=== PATIENT | female | born 1970 | race Hispanic/Latino ===

== ENCOUNTER 2016-12-31 17:30 | Inpatient (IN) | payer MEDICAID ==
[2016-12-31] MEDS ORDERED: Sodium Chloride 0.9% 500 ML IV STA (17:56)
--- NOTE | 2016-12-31 18:00 | ED PDOC ---
HPI: Chest Pain Time Seen by Provider: 12/31/16 17:48 Chief Complaint (Nursing): Chest Pain Chief Complaint (Provider): Chest pain History Per: Patient History/Exam Limitations: no limitations Onset/Duration Of Symptoms: Days (2 days) Current Symptoms Are (Timing): Still Present Additional Complaint(s): Pt. with left chest pain going to neck and left shoulder. Comes and goes. No dyspnea. Has nausea, vomit x1 nonbloody and diarrhea nonbloody 2x. No weakness. No leg pain, long distance travel, or hormone tx. Has dizziness like room spinning when she gets up or moves started 4 days ago. Better when staying still. No abd pain, new food. Past Medical History Reviewed: Nursing Documentation, Vital Signs Vital Signs: Last Vital Signs Temp 98.7 F 12/31/16 17:33 Pulse 80 12/31/16 18:25 Resp 20 12/31/16 17:33 BP 140/78 12/31/16 17:33 Pulse Ox 97 12/31/16 19:42 - Medical History PMH: HTN - Surgical History Surgical History: Cholecystectomy, - Family History Family History: States: Unknown Family Hx - Living Arrangements Living Arrangements: With Family - Social History Current smoker - smoking cessation education provided: No Alcohol: None Drugs: Denies - Home Medications Home Medications: Ambulatory Orders Medication Instructions Recorded Cyclobenzaprine HCl [Flexeril] 10 mg PO BID PRN #12 tab 12/02/14 Ibuprofen [Motrin Tab] 800 mg PO Q6H PRN #20 tab 12/02/14 Pill For Blood Pressure PO DAILY 12/02/14 Tramadol HCl [Ultram] 50 mg PO Q6 #15 tab 05/25/15 Albuterol 0.5% [Albuterol 0.5% 3 ml IH Q6H PRN #30 neb 11/08/15 Inhal Deanne (2.5 mg/0.5 ml) UD] Ondansetron ODT [Zofran ODT] 4 mg PO Q8H PRN #20 odt 11/08/15 Prednisone 50 mg PO DAILY #4 tablet 11/08/15 oxyCODONE/Acetaminophen [Percocet 1 ea PO Q6H PRN #15 tab 03/30/16 5/325 mg Tab] - Allergies Allergies/Adverse Reactions: Allergies Allergy/AdvReac Type Severity Reaction Status Date / Time No Known Allergies Allergy Verified 11/08/15 17:42 Review of Systems ROS Statement: Except As Marked, All Systems Reviewed And Found Negative Cardiovascular: Positive for: Chest Pain Gastrointestinal: Positive for: Nausea, Vomiting, Diarrhea Musculoskeletal: Positive for: Neck Pain, Shoulder Pain Neurological: Positive for: Dizziness Physical Exam - Reviewed Nursing Documentation Reviewed: Yes Vital Signs Reviewed: Yes - Physical Exam Appears: Positive for: Non-toxic, No Acute Distress Head Exam: Positive for: ATRAUMATIC, NORMAL INSPECTION, NORMOCEPHALIC Skin: Positive for: Normal Color, Warm, DRY Eye Exam: Positive for: EOMI, Normal appearance, PERRL ENT: Positive for: Normal ENT Inspection Neck: Positive for: Normal, Painless ROM, Supple Cardiovascular/Chest: Positive for: Regular Rate, Rhythm. Negative for: Edema Respiratory: Positive for: CNT, Normal Breath Sounds Gastrointestinal/Abdominal: Positive for: Normal Exam, Bowel Sounds, Soft. Negative for: Tenderness Back: Positive for: Normal Inspection. Negative for: L CVA Tenderness, R CVA Tenderness Extremity: Positive for: Normal ROM. Negative for: Tenderness, Pedal Edema Neurologic/Psych: Positive for: Alert, joint terminal attack controller II-XII, Oriented. Negative for: Motor/Sensory Deficits, Facial Droop - Laboratory Results Result Diagrams: 12/31/16 18:30 12/31/16 18:30 Interpretation Of Abn Labs: no acute - ECG ECG: Positive for: Interpreted By Me, Viewed By Nd ECG Rhythm: Positive for: Normal QRS, Normal ST Segment, Sinus Rhythm O2 Sat by Pulse Oximetry: 97 Pulse Ox Interpretation: Normal - Radiology X-Ray: Interpreted by Me, Viewed By Nd X-Ray Interpretation: No Acute Disease - CT Scan/US ct Other Rad Studies (CT/US): Read By Radiologist Other Rad Interpretation: no acute - Progress ED Course And Treament: 1951: Stable. AAOx3. Pain free. Spoke with Dr. Ness. Will need admit for tele chest pain eval. He will give further orders when pt. reaches floor. Medical Decision Making Medical Decision Makin CT FINDINGS: BRAIN: No significant acute abnormality identified. No acute hemorrhage seen within the brain. No acute extra-axial fluid collections visualized. No evidence of significant mass effect within the brain. Normal hamilton-white matter differentiation. VENTRICLES: No evidence of significant hydrocephalus. BONES/JOINTS: No acute fractures or other acute bony abnormality noted. SOFT TISSUES: No acute abnormality of the visualized soft tissues is seen. SINUSES: Visualized paranasal sinuses appear clear. MASTOID AIR CELLS: Mastoid air cells appear clear. IMPRESSION: - No acute findings seen within the brain. - See above for remaining findings. Scribe Attestation: Documented by Jia Walker acting as a scribe for Terence Lisa MD. Scribe Attestation: All medical record entries made by the Scribe were at my direction and personally dictated by me. I have reviewed the chart and agree that the record accurately reflects my personal performance of the history, physical exam, medical decision making, and the department course for this patient. I have also personally directed, reviewed, and agree with the discharge instructions and disposition. Disposition - Clinical Impression Clinical Impression: Chest pain - Patient ED Disposition Is Patient to be Admitted: Yes Counseled Patient/Family Regarding: Studies Performed, Diagnosis - Disposition Disposition Time: 20:07 Condition: FAIR - Pt Status Changed To: Hospital Disposition Of: Observation - POA Present On Arrival: None Core Measure Indicators: Chest Pain
[2016-12-31 18:51] LABS: BASO # 0.1 K/uL (0.0-0.2); BASO % 0.5 % (0.0-2.0); EOS # 0.1 K/uL (0.0-0.7); EOS % 1.4 % (0.0-4.0); HEMATOCRIT 41.4 % (34.0-47.0); LYMPH # 2.3 K/uL (1.0-4.3); LYMPH % 24.1 % (20.0-40.0); MEAN CELL VOLUME 90.4 fl (81.0-99.0); MEAN CORPUSCULAR HEMOGLOBIN 30.9 pg (27.0-31.0); MEAN CORPUSCULAR HGB CONC 34.2 g/dL (33.0-37.0); MEAN PLATELET VOLUME 8.5 fl (7.2-11.7); MONO # 0.6 K/uL (0.0-0.8); MONO % 6.6 % (0.0-10.0); NEUT # 6.3 K/uL (1.8-7.0); NEUT % 67.4 % (50.0-75.0); NRBC % 0.1 % (0.0-0.0); RED CELL DISTRIBUTION WIDTH 12.9 % (11.5-14.5); WHITE BLOOD COUNT 9.4 K/uL (4.8-10.8)
[2016-12-31 18:56] LABS: ALB/GLOB RATIO 1.2 (1.0-2.1); ALKALINE PHOSPHATASE 78 U/L (38-126); ALT/SGPT 53 U/L (9-52); AST/SGOT 22 U/L (14-36); BILIRUBIN,TOTAL 0.5 mg/dl (0.2-1.3); BLOOD UREA NITROGEN 11 mg/dl (7-17); CALCIUM 9.3 mg/dL (8.4-10.2); CARBON DIOXIDE 30 mmol/L (22-30); CHLORIDE 102 mmol/L (98-107); GFR AFRICAN-AMERICAN > 60; GLUCOSE,RANDOM 96 mg/dL (65-105); LIPASE 85 U/L (23-300); POTASSIUM 3.6 MMOL/L (3.6-5.0); SODIUM 142 mmol/l (132-148); TOTAL PROTEIN 7.7 G/DL (6.3-8.2)
[2016-12-31 19:36] LABS: PARTIAL THROMBOPLASTIN TIME 32.8 Seconds (25.6-37.1)
--- NOTE | 2016-12-31 19:36 | CT ---
EXAM: CT Head Without Intravenous Contrast CLINICAL HISTORY: 46 years old, female; Signs and symptoms; Dizziness TECHNIQUE: Axial computed tomography images of the head/brain without intravenous contrast. This CT exam was performed using one or more of the following dose reduction techniques: automated exposure control, adjustment of the mA and/or kV according to patient size, and/or use of iterative reconstruction technique. Coronal and sagittal reformatted images were created and reviewed. EXAM DATE/TIME: 12/31/2016 5:55 PM COMPARISON: No relevant prior studies available. FINDINGS: BRAIN: No significant acute abnormality identified. No acute hemorrhage seen within the brain. No acute extra-axial fluid collections visualized. No evidence of significant mass effect within the brain. Normal hamilton-white matter differentiation. VENTRICLES: No evidence of significant hydrocephalus. BONES/JOINTS: No acute fractures or other acute bony abnormality noted. SOFT TISSUES: No acute abnormality of the visualized soft tissues is seen. SINUSES: Visualized paranasal sinuses appear clear. MASTOID AIR CELLS: Mastoid air cells appear clear. IMPRESSION: - No acute findings seen within the brain. - See above for remaining findings.
[2017-01-01 03:24] LABS: HEMATOCRIT 39.9 % (34.0-47.0); MEAN CORPUSCULAR HEMOGLOBIN 30.5 pg (27.0-31.0); MEAN CORPUSCULAR HGB CONC 33.6 g/dL (33.0-37.0); RED CELL DISTRIBUTION WIDTH 13.1 % (11.5-14.5); WHITE BLOOD COUNT 8.4 K/uL (4.8-10.8)
[2017-01-01 03:25] LABS: CHLORIDE 103 mmol/L (98-107); POTASSIUM 3.6 MMOL/L (3.6-5.0); SODIUM 142 mmol/l (132-148)
[2017-01-01 03:27] LABS: ALB/GLOB RATIO 1.1 (1.0-2.1); AST/SGOT 22 U/L (14-36); BILIRUBIN,TOTAL 0.3 mg/dl (0.2-1.3); CARBON DIOXIDE 33 mmol/L (22-30); CHOLESTEROL 166 mg/dL (0-199); GFR AFRICAN-AMERICAN > 60; TOTAL PROTEIN 6.8 G/DL (6.3-8.2)
[2017-01-01 03:28] LABS: ALKALINE PHOSPHATASE 66 U/L (38-126); ALT/SGPT 47 U/L (9-52); BLOOD UREA NITROGEN 11 mg/dl (7-17); CALCIUM 8.8 mg/dL (8.4-10.2); GLUCOSE,RANDOM 101 mg/dL (65-105)
[2017-01-01 05:37] LABS: T4 7.74 ug/dl (5.5-11.0)
[2017-01-01 05:51] LABS: THYROID STIMULATING HORMONE 0.98 mIU/ML (0.46-4.68)
[2017-01-01] MEDS ORDERED: Patient's Own Med (Losartan/Hydrochlorothiazide [Losartan-Hctz 100-25 Mg Tab] 1 TAB) PO SCH (09:00)
[2017-01-01] MEDS: Enoxaparin 40 mg Syringe SC SCH (09:24)
--- NOTE | 2017-01-01 14:20 | RAD ---
HISTORY: chest pain COMPARISON: Chest x-ray performed 11/08/15 TECHNIQUE: Chest PA and lateral FINDINGS: Examination limited by habitus. LUNGS: No focal consolidation. Please note that chest x-ray has limited sensitivity for the detection of pulmonary masses. PLEURA: No significant pleural effusion identified. No definite pneumothorax . CARDIOVASCULAR: Heart size appears within normal limits. OSSEOUS STRUCTURES: Mild degenerative changes of the spine. VISUALIZED UPPER ABDOMEN: Unremarkable. OTHER FINDINGS: None. IMPRESSION: No focal consolidation, significant pleural effusion, or definite pneumothorax identified.
--- NOTE | 2017-01-01 17:49 | CON ---
DATE: 01/01/2017 REASON FOR CONSULTATION: Chest pain. HISTORY OF PRESENT ILLNESS: The patient is a 46-year-old obese female who presents because of left-sided chest tightness radiating to the left shoulder associated with palpitation and dizzines s. The patient also experienced nausea and vomiting as well as diarrhea. The patient is unaware of any prior cardiac history. The patient is being treated for hypertension by Dr. Gomes as the primar y physician. SOCIAL HISTORY: The patient is a smoker. MEDICATIONS: Meclizine 25 mg q. 6 hours, Cozaar 100 mg once a day, hydrochlorothiazide 25 mg once a day, Lovenox 40 mg once a day, vitamin B12 1 mg IM daily, Zofran 4 mg intravenously q. 8 hours. REVIEW OF SYSTEMS: No fever or chills. No productive cough. PHYSICAL EXAMINATION: GENERAL: The patient is a middle-aged female who does not appear to be in any distress. VITAL SIGNS: Blood pressure 104/62, heart rate 68, temperature 98.6, respirations 20. HEENT: Normocephalic. NECK: No JVD. CHEST: Clear. HEART: S1, S2 regular. ABDOMEN: Soft. EXTREMITIES: No edema. LABORATORY DATA: CBC is within normal limits. PT/PTT within normal limits. SMA-7 is within normal limits except for carbon dioxide of 33. Two sets of troponins are negative. TSH level is within nor mal limits. Total T3 is below normal at 1.16. IMAGING: Head CT scan without contrast: No acute findings. EKG revealed normal sinus rhythm. ASSESSMENT: 1. Chest pain, myocardial infarction is ruled out. 2. Hypertension. RECOMMENDATIONS: Continue current Cozaar 100 mg once a day, hydrochlorothiazide 25 mg once a day and start aspirin 81 mg once a day. I will review the echocardiographic study performed today. Obtain serum D-dimer as well as urine for drug screen. Gage Huynh MD cc: [id number] TT: 01/01/2017 17:48:58 Confirmation # [id number] Dictation # [id number] mn
--- NOTE | 2017-01-01 18:00 | HP ---
CHIEF COMPLAINT: Chest pain. HISTORY OF PRESENT ILLNESS: This is a 46-year-old female, known case of hypertension, who was having left-sided chest, radiating to neck and left shoulder. So the patient was brought to Emergency Room and was admitted for further management. REVIEW OF SYSTEMS: Positive for chest pain. Review of systems otherwise was negative for headache, dizziness, syncope, loss of consciousness, chest pain, shortness of breath, nausea, vomiting, diarrhe a, constipation, any new joint or extremity pain. The patient did have nausea and 1 episode of vomit ing. Also had episode of diarrhea, but currently patient has none of those. Review of systems of al l other organ systems is unremarkable. PAST MEDICAL HISTORY: Significant for hypertension. PAST SURGICAL HISTORY: Remarkable for section and cholecystectomy. PERSONAL HISTORY: The patient is currently a nonsmoker, nondrinker, no substance abuse. MEDICATIONS: The patient is on multiple medications, which include Motrin, Flexeril, Ultram, albuter ol, Zofran, Percocet, prednisone. ALLERGIES: The patient is not allergic to any medications. FAMILY HISTORY: Noncontributory. PHYSICAL EXAMINATION: GENERAL: Well-built, well-nourished 46-year-old morbidly obese patient in no acute distress. VITAL SIGNS: Temperature 98.6, pulse 77, respirations 16, blood pressure 124/80. HEENT: Pupils reacting to light. No JVD, no thyromegaly, no lymphadenopathy, no nystagmus. Normoce phalic, atraumatic skull. HEART: S1, S2 normal, regular. No significant murmur, gallop, or rub is heard. LUNGS: Show good bilateral air entry. No rales or rhonchi. ABDOMEN: Soft, nontender, no organomegaly, no fluid. Bowel sounds are plus. EXTREMITIES: No edema, no calf swelling, no tenderness, no acute ischemia. CENTRAL NERVOUS SYSTEM: Essentially unchanged. DIAGNOSTIC DATA: Available diagnostic data reviewed. WBC 9.4, hemoglobin 14.2, hematocrit 41.4, tj telets 286. Sodium 142, potassium 3.6, chloride 102, bicarbonate 30, BUN 11, creatinine 0.7. SMA-12 was unremarkable. EKG does not reveal significant arrhythmia. Chest x-ray was clear. CAT scan of head was also clear. ADMITTING IMPRESSION: Chest pain. PLAN: As ordered. Case and plan discussed with patient. Partha Ness MD cc: [id number] TT: 01/01/2017 17:59:33 dn
--- NOTE | 2017-01-01 21:55 | CARD ---
APPROVED REPORT EXAM: Two-dimensional and M-mode echocardiogram with Doppler and color Doppler. Other Information Quality : GoodRhythm : NSR INDICATION Chest Pain 2D DIMENSIONS IVSd1.06 (0.7-1.1cm)LVDd4.64 (3.9-5.9cm) LVOT Diameter2.41 (1.8-2.4cm)PWd0.84 (0.7-1.1cm) IVSs1.77 (0.8-1.2cm)LVDs2.54 (2.5-4.0cm) FS (%) 45.2 %PWs1.55 (0.8-1.2cm) LVEF (%)65.0 (>50%) M-Mode DIMENSIONS Left Atrium (MM)3.68 (2.5-4.0cm)IVSd1.26 (0.7-1.1cm) Aortic Root3.09 (2.2-3.7cm)LVDd5.06 (4.0-5.6cm) Aortic Cusp Exc.2.09 (1.5-2.0cm)PWd0.97 (0.7-1.1cm) IVSs1.74 cmFS (%) 56 % LVDs2.24 (2.0-3.8cm)PWs1.56 cm Mitral Valve MV E Pcvilbef29.7cm/sMV DECEL [id number] A Gsfdrqbq76.1cm/s MV NTX50qdG/A ratio1.0MVA (PHT)3.39cm2 TDI E/Lateral E'0.0E/Medial E'0.0 Pulmonary Valve PV Peak Tcvixgyu017.6cm/s LEFT VENTRICLE The left ventricle is normal size. There is mild concentric left ventricular hypertrophy. The left ventricular function is normal. The left ventricular ejection fraction is within the normal range. There is normal LV segmental wall motion. Transmitral Doppler flow pattern is Grade I-abnormal relaxation pattern. RIGHT VENTRICLE The right ventricle is normal size. There is normal right ventricular wall thickness. The right ventricular systolic function is normal. ATRIA The left atrium size is normal. The right atrium size is normal. AORTIC VALVE The aortic valve is mildly thickened. No aortic regurgitation is present. There is no aortic valvular stenosis. MITRAL VALVE The mitral valve is mildly thickened. There is no mitral valve stenosis. There is no mitral valve regurgitation noted. TRICUSPID VALVE The tricuspid valve is normal in structure and function. There is no tricuspid valve regurgitation noted. PULMONIC VALVE The pulmonary valve is normal in structure and function. There is no pulmonic valvular regurgitation. GREAT VESSELS The aortic root is normal in size. The IVC is normal in size and collapses >50% with inspiration. PERICARDIAL EFFUSION There is a small loculated anterior pericardial effusion. <Conclusion> The left ventricle is normal size. There is mild concentric left ventricular hypertrophy. The left ventricular function is normal. The left ventricular ejection fraction is within the normal range. There is normal LV segmental wall motion. Transmitral Doppler flow pattern is Grade I-abnormal relaxation pattern.
--- NOTE | 2017-01-02 00:14 | CARD ---
APPROVED REPORT EKG Measurement Heart [id number] HI [id number] <Conclusion> Normal sinus rhythm Normal ECG
--- NOTE | 2017-01-02 06:41 | CP.PCM.DIS ---
Provider - Provider Date of Admission: 01/01/17 21:22 Attending physician: Partha Ness MD Time Spent in preparation of Discharge (in minutes): 45 Diagnosis - Discharge Diagnosis (1) Morbidly obese Status: Acute Comment: Patient counseled on diet and exercise. (2) Chest pain Status: Acute Comment: Most consistent with costochondritis. Hospital Course - Lab Results Lab Results: Most Recent Lab Values WBC 8.4 K/uL (4.8-10.8) 01/01/17 02:30 RBC 4.38 Mil/uL (3.80-5.20) 01/01/17 02:30 Hgb 13.4 g/dL (12.0-16.0) 01/01/17 02:30 Hct 39.9 % (34.0-47.0) 01/01/17 02:30 MCV 91.0 fl (81.0-99.0) 01/01/17 02:30 MCH 30.5 pg (27.0-31.0) 01/01/17 02:30 MCHC 33.6 g/dL (33.0-37.0) 01/01/17 02:30 RDW 13.1 % (11.5-14.5) 01/01/17 02:30 Plt Count 272 K/uL (130-400) 01/01/17 02:30 MPV 8.5 fl (7.2-11.7) 12/31/16 18:30 Neut % (Auto) 67.4 % (50.0-75.0) 12/31/16 18:30 Lymph % (Auto) 24.1 % (20.0-40.0) 12/31/16 18:30 Cache % (Auto) 6.6 % (0.0-10.0) 12/31/16 18:30 Eos % (Auto) 1.4 % (0.0-4.0) 12/31/16 18:30 Baso % (Auto) 0.5 % (0.0-2.0) 12/31/16 18:30 Neut # 6.3 K/uL (1.8-7.0) 12/31/16 18:30 Lymph # 2.3 K/uL (1.0-4.3) 12/31/16 18:30 Cache # 0.6 K/uL (0.0-0.8) 12/31/16 18:30 Eos # 0.1 K/uL (0.0-0.7) 12/31/16 18:30 Baso # 0.1 K/uL (0.0-0.2) 12/31/16 18:30 PT 11.3 Seconds (9.8-13.1) 12/31/16 18:30 INR 1.0 (0.9-1.2) 12/31/16 18:30 APTT 32.8 Seconds (25.6-37.1) 12/31/16 18:30 D-Dimer, Quantitative 294 ng/mlDDU (0-230) H 01/01/17 18:57 Sodium 142 mmol/l (132-148) 01/01/17 02:00 Potassium 3.6 MMOL/L (3.6-5.0) 01/01/17 02:00 Chloride 103 mmol/L (98-107) 01/01/17 02:00 Carbon Dioxide 33 mmol/L (22-30) H 01/01/17 02:00 Anion Gap 10 (10-20) 01/01/17 02:00 BUN 11 mg/dl (7-17) 01/01/17 02:00 Creatinine 0.7 mg/dL (0.7-1.2) 01/01/17 02:00 Est GFR ( Amer) > 60 01/01/17 02:00 Est GFR (Non-Af Amer) > 60 01/01/17 02:00 Random Glucose 101 mg/dL (65-105) 01/01/17 02:00 Hemoglobin A1c 5.1 % (4.2-6.5) 01/01/17 02:30 Calcium 8.8 mg/dL (8.4-10.2) 01/01/17 02:00 Total Bilirubin 0.3 mg/dl (0.2-1.3) 01/01/17 02:00 AST 22 U/L (14-36) 01/01/17 02:00 ALT 47 U/L (9-52) 01/01/17 02:00 Alkaline Phosphatase 66 U/L (38-126) 01/01/17 02:00 Troponin I < 0.0120 ng/mL (0.00-0.120) 01/01/17 02:30 Total Protein 6.8 G/DL (6.3-8.2) 01/01/17 02:00 Albumin 3.6 g/dL (3.5-5.0) 01/01/17 02:00 Globulin 3.2 gm/dL (2.2-3.9) 01/01/17 02:00 Albumin/Globulin Ratio 1.1 (1.0-2.1) 01/01/17 02:00 Triglycerides 115 mg/DL (0-149) 01/01/17 02:00 Cholesterol 166 mg/dL (0-199) 01/01/17 02:00 LDL Cholesterol Direct 111 mg/dL (0-129) 01/01/17 02:00 HDL Cholesterol 33 MG/DL (30-70) 01/01/17 02:00 Lipase 85 U/L (23-300) 12/31/16 18:30 Vitamin B12 247 pg/mL (239-931) 01/01/17 02:00 Thyroxine (T4) 7.74 ug/dl (5.5-11.0) 01/01/17 02:00 Total T3 1.16 nmol/L (1.49-2.60) L 01/01/17 02:00 TSH 3rd Generation 0.98 mIU/ML (0.46-4.68) 01/01/17 02:00 - Hospital Course Hospital Course: Patient seen and examined at the bedside with attending. 46F admitted for rule out ACS. Evaluated by Cardiology (Dr Huynh) and Troponins/EKG/Echo/Stress Test/CTA chest negative for cardiac or pulmonary etiology. Most consistent with musculoskeletal. Patient is stable for discharge to home with follow up with Dr Gomes. Discharge Exam - Head Exam Head Exam: ATRAUMATIC, NORMAL INSPECTION, NORMOCEPHALIC - Eye Exam Eye Exam: EOMI, PERRL - ENT Exam ENT Exam: Mucous Membranes Moist, Normal Exam - Neck Exam Neck exam: Full Rom, Normal Inspection - Respiratory Exam Respiratory Exam: Clear to PA & Lateral, NORMAL BREATHING PATTERN. absent: Rales, Rhonchi, Wheezes - Cardiovascular Exam Cardiovascular Exam: REGULAR RHYTHM. absent: JVD - GI/Abdominal Exam GI & Abdominal Exam: Normal Bowel Sounds, Soft. absent: Tenderness - Extremities Exam Extremities exam: full ROM, normal capillary refill, pedal pulses present - Neurological Exam Neurological exam: Alert, Oriented x3 - Psychiatric Exam Psychiatric exam: Normal Affect, Normal Mood - Skin Skin Exam: Normal Color, Warm Discharge Plan - Follow Up Plan Condition: FAIR Disposition: HOME/ ROUTINE Patient education suggested?: Yes Instructions: Costochondritis (DC), Heart Healthy Diet (DC) Referrals: Nigel Rodriguez MD [Family Provider] - 1 Week
--- NOTE | 2017-01-02 09:54 | PQF BMI ---
This form is a permanent part of the medical record 01/02/17 Dr. Ness, Would you please document the BMI in your progress notes. Documentation in the H&P that the patient is morbidly obese. EMR lists the patient as 5', weighing 235 pounds with a BMI of 45.9 Clarification of your documentation is requested to better reflect the severity of illness and intensity of treatment of your patient. Indicators present [x] Documented BMI>40 [] Nutritional/Channel Process Supervisor consults [] 100 pounds or more over ideal body weight [] Documented BMI / HT & WT [] Other : [] Location in the medical record that reflects the above clinical findings: [] Other Treatment Provided: [] PHYSICIAN'S RESPONSE Based on your medical judgment of the clinical indicators outlined above, please define the following: [] Morbid obesity [] Obesity [] Other [] [] If unable to determine, please check the box, sign and date. Present On Admission (POA) Indicator: [] Present at the time of admission [] Not present at the time of admission [] Clinically Undetermined In responding to this query, please exercise your independent professional judgment. The fact that a question is asked does not imply that any particular answer is desired or expected. Thank you for your clarification on this documentation. If you have any questions please call:extension [phone] Medical Records Dept * Thank you, Geno Beltran RN CDMP [facility]
--- NOTE | 2017-01-02 09:59 | PQF CHESTP ---
This form is a permanent part of the medical record 01/02/17 , Please clarify the possible etiology of the chest pain if known. Admitted with chest pain radiating to the neck and left shoulder, EKG Sinus. Troponin negative. Echo: EF 65%, abnormal relaxation pattern. There is clinical documentation of CHEST PAIN with evaluation, treatment, and / or monitoring present in the medical record. Please clarify the possible / probable cause of CHEST PAIN. Source Documentation: Chart Location: [x] Progress Notes [x] Consults [] Radiology Results Date: [] Date: [] Date:[] ED Records: [x] H&P: [x] Other: [] PHYSICIAN RESPONSE CAUSE OF CHEST PAIN: Please Check [] Documentation: [] Musculoskeletal Chest Pain [] Costochondritis [] Gastroesophageal Reflux Disease (GERD) [] Acute Gastritis [] Angina [] CAD [] Other [] [] Unknown [] In responding to this query, please exercise your independent professional judgment. The fact that a question is asked does not imply that any particular answer is desired or expected. Thank you for your clarification on this documentation. If you have any questions please call:extension [phone] Medical Records Dept * Thank you, Geno Beltran RN CD[facility]
[2017-01-02] MEDS: Enoxaparin 40 mg Syringe SC SCH (11:09)
--- NOTE | 2017-01-02 11:53 | CARD ---
APPROVED REPORT Protocol: ANNA Test Type: Treadmill Stress Test Attending Physician: Dr. Lei Referring Physician: Dr. Huynh Technologist: Susana Reese Test Indications: chest pain Medications: Cyanocobalamin, Lovenox 40mg, Hydrochlorothiazide 15mg, Losartan Potassium 100mg, Meclizine HCl 25mg, Ondansetron HCL 4mg Medical History: Hypertension, Asthma, Smoker, Seizures, Arthritis, , Gallbladder surgery. Target HR: 173 bpm Resting ECG: normal Resting Heart Rate: 93 bpm Resting Blood Pressure: 146/102mmHg submaximum (85%): 147 bpm TEST SUMMARY [id number]:02..[id number]/102.0. [id number]:[id number]/102.0. PRETESTHYPERV.00:030.00.01.774761/102.0. PRETESTWARM-UP00:461.00.01.255090/102.0. EXERCISESTAGE 103:001.710.04.5961190/80.1. EXERCISESTAGE 203:002.512.07.1861805/90.0. EXERCISESTAGE 300:413.514.08.6374636/90.0. [id number]:200.00.01.350383/80.0. POST EXERCISE Reason for Termination: Target heart rate achieved Target HR: NoMax HR: 150 bpm87% of Maximum Predicted HR: 173 bpm Exercise duration: 3 Stage06:40 min:secExercise capacity: 8.1METs Max Blood Pressure: 190/70mmHg Blood Pressure response to exercise: normal resting BP - appropriate response Heart Rate response to exercise: appropriate Chest Pain: Yesnon-limitingAngina index: 0 Arrhythmia: Nonone ST Change: NononeDeviation: 0 mm INTERPRETATION Stress EKG Conclusion: 46 y/o w/f being evaluated for chest pain The resting eKG: normal Resting HR:86 BPM; BP: 146/102 She exercised for 6:40 minutes with Anna Protocol attaining a HR of 150 BPM which is 87% of MPHR. Her BP josiane to190/70 with aworkload of 8.1 METs During the test there was no ST changes or chest pain. Impression: Normal Stress Test
[2017-01-02 12:08] VITALS: O2SAT 96
--- NOTE | 2017-01-02 15:02 | PN ---
DATE: 01/02/2017 The patient denies any chest pain. PHYSICAL EXAMINATION: VITAL SIGNS: Blood pressure 134/86, heart rate 75, temperature 97.8, respirations 20. HEENT: Normocephalic. NECK: No JVD. CHEST: Clear. HEART: S1, S2 regular. EXTREMITIES: No edema. Urine drug screen is negative. Two sets of troponins are negative. A stress test was normal. D-dim er is elevated at 294. ASSESSMENT: 1. Chest pain, rule out pulmonary infarction. 2. Hypertension. RECOMMENDATIONS: Continue current Cozaar, hydrochlorothiazide, subcutaneous Lovenox. I did order fo r CT angio of the chest. Gage Huynh MD cc: [id number] TT: 01/02/2017 15:01:51 Confirmation # [id number] Dictation # [id number]
[2017-01-02 16:03] VITALS: BP 160/104; PULSE 79
[2017-01-02 16:40] VITALS: RESP 18; TEMP 98.3
--- NOTE | 2017-01-02 17:53 | CT ---
CTA chest PE protocol Indication: Rule out PE Technique: Contiguous axial images were obtained through the chest with intravenous contrast enhancement. Sagittal and coronal reconstructions were generated and reviewed. This CT exam was performed using 1 or more of the falling dose reduction techniques: Automated exposure control, adjustment of the MAA and/or kV according to patient size, and/or use of iterative reconstruction technique. IV Contrast: 90 mL Omnipaque 300 Radiation dose (DLP): 385.42 MGy-cm. Comparison: Chest x-ray performed 12/31/16 Findings: Examination limited by habitus. The mediastinal and hilar vascular structures appear within normal limits. The heart appears within normal limits of size. No large central or segmental pulmonary embolus evident. No focal consolidation. No pleural effusion. No pneumothorax. 4 mm left apical nodule (series 5, image 10). Limited visualized portions of the upper abdomen appear demonstrates cholecystectomy clips. Mild degenerative changes of the spine. Impression: No large central or segmental pulmonary embolus identified. 4 mm left apical pulmonary nodule. In the absence of risk factors for lung cancer, no specific imaging follow-up is required. If the patient is a smoker or has other risk factors, follow-up CT at 12 months is recommended to document stability.
== END 2017-01-02 19:15 | disposition home or self-care (01) | DRG 102 ==
LOC: H.ER 17:30 → H.ERHOLD 20:05 → H.TEL 21:03 → INTOOBSV 01-01 21:22 → OBSVTOIN 01-01 21:22
PROVIDERS: ADMIT Internal Medicine; ATTEND Internal Medicine
DX: M94.0 Chondrocostal junction syndrome [Tietze] (principal); Z68.42 Body mass index [BMI] 45.0-49.9, adult; I10 Essential (primary) hypertension; E66.01 Morbid (severe) obesity due to excess calories; F17.200 Nicotine dependence, unspecified, uncomplicated; Z71.3 Dietary counseling and surveillance

== ENCOUNTER 2017-09-24 18:11 | Emergency (ER) | payer MEDICAID ==
[2017-09-24 18:21] VITALS: TEMP 98.1; O2SAT 100
--- NOTE | 2017-09-24 19:35 | ED PDOC ---
HPI: General Adult Time Seen by Provider: 09/24/17 18:27 Chief Complaint (Nursing): Rib Injury Chief Complaint (Provider): Rib Pain History Per: Patient History/Exam Limitations: no limitations Onset/Duration Of Symptoms: Days (x 1 week) Have you had recent travel within the past 21 days to any of the following countries: [place], [place], [place] or [place]?: No Current Symptoms Are (Timing): Still Present Severity: Moderate Pain Scale Rating Of: 6 Recent Trauma: None Additional History Per: Family ( at bedside) Additional Complaint(s): Whitney is a 47 y/o female who presents to the ED complaining of right sided lower rib pain for the past week. Patient states she went to her PMD last Sunday who thought she might have a fracture because she has been going to the gym a lot. She states the pain is worse when she takes a deep breath, sits down to pee, or moves. Patient denies any trauma to the area or history of similar symptoms. Patient denies dysuria, hematuria, frequency/urgency, nausea, vomiting , fever, abdominal pain, chest pain, calf pain, SOB, leg swelling or other medical complaints. PMD: Michael Past Medical History Reviewed: Historical Data, Nursing Documentation, Vital Signs Vital Signs: Last Vital Signs Temp 98.1 F 09/24/17 21:30 Pulse 74 09/24/17 21:30 Resp 18 09/24/17 21:30 BP 140/82 09/24/17 21:30 Pulse Ox 100 09/24/17 21:30 - Medical History PMH: Arthritis (right Knee), Asthma, HTN Denies: HIV, Chronic Kidney Disease - Surgical History Surgical History: Cholecystectomy, - Family History Family History: States: No Known Family Hx - Social History Current smoker - smoking cessation education provided: Yes (2-3 cigs/day) Alcohol: None Drugs: Denies - Home Medications Home Medications: Ambulatory Orders Medication Instructions Recorded Losartan/Hydrochlorothiazide 1 tab PO DAILY 12/31/16 [Losartan-Hctz 100-25 mg Tab] Cyclobenzaprine [Cyclobenzaprine 10 mg PO TID PRN #12 tab 09/24/17 HCl] Ibuprofen [Motrin Tab] 600 mg PO Q6 PRN #20 tab 09/24/17 - Allergies Allergies/Adverse Reactions: Allergies Allergy/AdvReac Type Severity Reaction Status Date / Time No Known Allergies Allergy Verified 12/31/16 20:44 Review of Systems ROS Statement: Except As Marked, All Systems Reviewed And Found Negative Constitutional: Negative for: Fever, Chills Cardiovascular: Negative for: Chest Pain Respiratory: Negative for: Cough, Shortness of Breath Gastrointestinal: Negative for: Nausea, Vomiting, Abdominal Pain Genitourinary Female: Negative for: Dysuria, Frequency Musculoskeletal: Positive for: Other (rib pain) Skin: Negative for: Rash Neurological: Negative for: Weakness Physical Exam - Reviewed Nursing Documentation Reviewed: Yes Vital Signs Reviewed: Yes - Physical Exam Appears: Positive for: Well, Non-toxic, No Acute Distress Head Exam: Positive for: ATRAUMATIC, NORMOCEPHALIC Skin: Positive for: Normal Color, Warm, Dry Eye Exam: Positive for: EOMI, PERRL Neck: Positive for: Painless ROM, Supple Cardiovascular/Chest: Positive for: Regular Rate, Rhythm. Negative for: Chest Non Tender (Tenderness to right inferior anterior and lateral ribs with no overlying skin changes), Murmur, Bradycardia, Tachycardia, Other (evidence of subcutaneous emphysema) Respiratory: Positive for: Normal Breath Sounds. Negative for: Decreased Breath Sounds, Accessory Muscle Use, Stridor, Wheezing, Respiratory Distress Gastrointestinal/Abdominal: Positive for: Soft. Negative for: Tenderness, Mass , Distended, Guarding, Rebound Back: Negative for: L CVA Tenderness, R CVA Tenderness Extremity: Positive for: Normal ROM. Negative for: Tenderness, Pedal Edema, Calf Tenderness, Deformity, Swelling Neurologic/Psych: Positive for: Alert, Oriented (x3), Gait (steady in ED) - Laboratory Results Urine POC: Negative Urine dip results: Negative for: Leukocyte Esterase, Blood, Nitrate, Ketones, Glucose, Bilirubin, Protein - ECG ECG Rhythm: Positive for: Normal ST Segment, Sinus Rhythm (Normal [place]) O2 Sat by Pulse Oximetry: 100 (RA) Pulse Ox Interpretation: Normal - Radiology X-Ray: Interpreted by Me, Viewed By Me X-Ray Interpretation: No Acute Disease Medical Decision Making Medical Decision Making: Time: 18:37 Initial Impression: Acute rib pain, likely musculoskeletal in nature Initial Plan: --EKG --XR Ribs and Chest --Urine Dip --Urine Time: 19:32 --EKG reviewed --Flexeril --Tramadol --Toradol (Patient states she will not be driving home) Time: 20:10 --Urine Dip and Urine are both negative --CXR (-) acute fracture (-) pneumothorax --Educated on smoking cessation. Time: 20:30 On re-evaluation, patient reports improvement of symptoms and denies any SOB or chest pain at this time. On exam, patient remains AAOx3, in no acute distress. On exam, neck is supple, lungs CTA, cardiac RRR, abdomen is soft and non-tender , neuro exam shows no focal findings. VSS. Diagnostic results d/w the patient in great detail. Dx of acute rib pain, likely muscle strain d/w the patient. Based on history, exam and diagnostic results plan will be for discharge and outpatient follow up. Advised to follow up with primary care physician in 1-2 days without fail. Advised to take medication as prescribed. Return to the emergency room at any time for any new or worsening symptoms. Patient states she fully agrees with and understands discharge instructions. States that she agrees with the plan and disposition. Verbalized and repeated discharge instructions and plan. I have given the patient opportunity to ask any additional questions. Scribe Attestation: Documented by Ben Dan, acting as a scribe for Aishwarya Pierre PA-C Provider Scribe Attestation: All medical record entries made by the Scribe were at my direction and personally dictated by me. I have reviewed the chart and agree that the record accurately reflects my personal performance of the history, physical exam, medical decision making, and the department course for this patient. I have also personally directed, reviewed, and agree with the discharge instructions and disposition. Disposition - Clinical Impression Clinical Impression: Rib pain on right side, Muscle strain - Patient ED Disposition Is Patient to be Admitted: No Counseled Patient/Family Regarding: Studies Performed, Diagnosis, Need For Followup, Rx Given - Disposition Referrals: [facility] [Outside] Disposition: Routine/Home Disposition Time: 20:49 Condition: STABLE Additional Instructions: Please contact your doctor in 2 days for re-evaluation and follow up / or call one of the physicians/clinics you have been referred to that are listed on the Patient Visit Information form that is included in your discharge packet. Bring any paperwork you were given at discharge with you along with any medications you are taking to your follow up visit. Our treatment cannot replace ongoing medical care by a primary care provider (PCP) outside of the emergency department. Prescriptions: Cyclobenzaprine [Cyclobenzaprine HCl] 10 mg PO TID PRN #12 tab PRN Reason: Muscle Spasm Ibuprofen [Motrin Tab] 600 mg PO Q6 PRN #20 tab PRN Reason: Pain, Moderate (4-7) Instructions: Muscle Strain, Chest Pain That Is Not Caused by the Heart (DC) Forms: [facility] (Maltese) Print Language: SWAZI
[2017-09-24 23:40] VITALS: BP 140/82; PULSE 74; RESP 18
--- NOTE | 2017-09-25 08:56 | RAD ---
PROCEDURE: Radiographs of the Chest and Right Ribs. HISTORY: RIB PAIN COMPARISON: Chest radiograph dated 12/31/2016. TECHNIQUE: Frontal radiograph of the chest and multiple oblique radiographs of the right ribs were obtained. FINDINGS: RIGHT RIBS: No fracture or focal lesion visualized. LUNGS: Clear. PLEURA: No pneumothorax or pleural fluid. CARDIOVASCULAR: Normal sized heart. No pulmonary vascular congestion. OTHER FINDINGS: Right upper quadrant surgical clips. IMPRESSION: Unremarkable radiographs of the chest and right ribs. No right rib fracture.
--- NOTE | 2017-09-25 12:42 | CARD ---
APPROVED REPORT EKG Measurement Heart [id number] <Conclusion> Normal sinus rhythm Possible Inferior infarct, age undetermined Abnormal ECG
== END 2017-09-24 21:37 | disposition home or self-care (01) ==
LOC: H.ER 18:11
DX: R07.82 Intercostal pain (principal); I10 Essential (primary) hypertension; F17.200 Nicotine dependence, unspecified, uncomplicated; J45.909 Unspecified asthma, uncomplicated
CPT/HCPCS: 71101; 81025; 93005; 96372; 99282; J1885

== ENCOUNTER 2017-10-03 11:06 | Emergency (ER) | payer MEDICAID ==
[2017-10-03 11:15] VITALS: BP 132/89; PULSE 89; TEMP 97; O2SAT 96
[2017-10-03 11:16] VITALS: BMI 46.8
[2017-10-03 11:32] VITALS: RESP 18
[2017-10-03 11:59] LABS: BASO # 0.1 K/uL (0.0-0.2); BASO % 1.1 % (0.0-2.0); EOS # 0.2 K/uL (0.0-0.7); EOS % 1.9 % (0.0-4.0); HEMOGLOBIN 14.5 g/dL (12.0-16.0); LYMPH # 2.5 K/uL (1.0-4.3); LYMPH % 29.1 % (20.0-40.0); MEAN CELL VOLUME 90.5 fl (81.0-99.0); MEAN CORPUSCULAR HEMOGLOBIN 30.7 pg (27.0-31.0); MEAN CORPUSCULAR HGB CONC 33.9 g/dL (33.0-37.0); MEAN PLATELET VOLUME 7.9 fl (7.2-11.7); MONO # 0.5 K/uL (0.0-0.8); MONO % 6.2 % (0.0-10.0); NEUT # 5.3 K/uL (1.8-7.0); NEUT % 61.7 % (50.0-75.0); NRBC % 0.1 % (0.0-0.0); RBC 4.72 Mil/uL (3.80-5.20); WHITE BLOOD COUNT 8.5 K/uL (4.8-10.8)
[2017-10-03 12:06] LABS: ALB/GLOB RATIO 1.2 (1.0-2.1); ALBUMIN 4.3 g/dL (3.5-5.0); ALT/SGPT 39 U/L (9-52); AST/SGOT 28 U/L (14-36); BLOOD UREA NITROGEN 16 mg/dl (7-17); CALCIUM 9.3 mg/dL (8.4-10.2); GFR AFRICAN-AMERICAN > 60; GFR NON-AFRICAN AMERICAN > 60
--- NOTE | 2017-10-03 12:07 | ED PDOC ---
HPI: Back Time Seen by Provider: 10/03/17 11:23 Chief Complaint (Nursing): Back Pain Chief Complaint (Provider): Right Flank Pain History Per: Patient History/Exam Limitations: no limitations Onset/Duration Of Symptoms: Days (x 3 weeks) Current Symptoms Are (Timing): Still Present Additional Complaint(s): Whitney is a 47 y/o female who presents to the ED complaining of right flank pain for the past 3 weeks. Patient states she has been coughing a lot so her PMD thought it was related to coughing and possibly breaking a rib. She was seen her a week ago where she had an XR done which showed no evidence of fracture. She was sent home on flu medications and muscle relaxants which she says made her feel better until this week on Sunday when it got worse again. Coughing and movement make it worse, but lying down does not. She denies fever, chills, hematuria, dysuria, nausea, or vomiting. PMD: Nigel Rodriguez Past Medical History Reviewed: Historical Data, Nursing Documentation, Vital Signs Vital Signs: Last Vital Signs Temp 97 F L 10/03/17 11:15 Pulse 89 10/03/17 11:15 Resp 18 10/03/17 11:20 BP 132/89 10/03/17 11:15 Pulse Ox 96 10/03/17 11:15 - Medical History PMH: Arthritis (right Knee), Asthma, HTN Denies: HIV, Chronic Kidney Disease - Surgical History Surgical History: Cholecystectomy, Other surgeries: partial hysterectomy - Family History Family History: States: Unknown Family Hx - Social History Current smoker - smoking cessation education provided: No Alcohol: None - Home Medications Home Medications: Ambulatory Orders Medication Instructions Recorded Losartan/Hydrochlorothiazide 1 tab PO DAILY 12/31/16 [Losartan-Hctz 100-25 mg Tab] Cyclobenzaprine [Cyclobenzaprine 10 mg PO TID PRN #12 tab 09/24/17 HCl] Ibuprofen [Motrin Tab] 600 mg PO Q6 PRN #20 tab 09/24/17 Ketorolac Tromethamine [Toradol] 10 mg PO Q6H PRN #19 tab 10/03/17 - Allergies Allergies/Adverse Reactions: Allergies Allergy/AdvReac Type Severity Reaction Status Date / Time nut - unspecified Allergy ANAPHYLAXIS Verified 10/03/17 11:29 onion Allergy ANAPHYLAXIS Verified 10/03/17 11:29 Review of Systems ROS Statement: Except As Marked, All Systems Reviewed And Found Negative Constitutional: Negative for: Fever, Chills Respiratory: Positive for: Cough Gastrointestinal: Negative for: Nausea, Vomiting Genitourinary Female: Negative for: Dysuria, Hematuria Musculoskeletal: Positive for: Back Pain (right flank) Physical Exam - Reviewed Nursing Documentation Reviewed: Yes Vital Signs Reviewed: Yes - Physical Exam Appears: Positive for: Uncomfortable (moderate due to pain; able to walk without significant discomfort) Skin: Positive for: Normal Color, Warm, Dry. Negative for: Rash ENT: Positive for: Normal ENT Inspection, Pharynx Is (clear) Neck: Positive for: Normal, Painless ROM, Supple Cardiovascular/Chest: Positive for: Regular Rate, Rhythm. Negative for: Murmur Respiratory: Positive for: Normal Breath Sounds. Negative for: Rales, Wheezing , Respiratory Distress Gastrointestinal/Abdominal: Positive for: Normal Exam, Soft. Negative for: Tenderness Back: Positive for: R CVA Tenderness (CVA and right flank). Negative for: L CVA Tenderness Extremity: Positive for: Normal ROM. Negative for: Other (straight leg lift) Neurologic/Psych: Positive for: Alert, Oriented - Laboratory Results Result Diagrams: 10/03/17 11:49 10/03/17 11:49 - ECG O2 Sat by Pulse Oximetry: 96 (RA) Pulse Ox Interpretation: Normal Medical Decision Making Medical Decision Making: Time: 11:38 Initial Impression: Right flank pain --Differentials include UTI, kidney stone, muscle spasm, pneumonia Initial Plan: --CT Abdomen & Pelvis w/o PO Contrast --CMP --CBC --Toradol --Urine Dip --Urine Time: 13:18 CT ABDOMEN & PELVIS FINDINGS: LOWER THORAX: Unremarkable. LIVER: Unremarkable. No gross lesion or ductal dilatation. GALLBLADDER AND BILE DUCTS: Prior cholecystectomy again evident. PANCREAS: Unremarkable. No gross lesion or ductal dilatation. SPLEEN: Unremarkable. ADRENALS: Unremarkable. No mass. KIDNEYS AND URETERS: Unremarkable. No hydronephrosis. No solid mass. VASCULATURE: Unremarkable. No aortic aneurysm. BOWEL: The stomach is mildly distended with retained food and fluid. There is no bowel obstruction a. Appreciated. Majority of small bowel is decompressed as well as much of the large bowel. Moderate fecal loading is seen at the mid large-bowel. APPENDIX: No CT evidence of appendicitis. Limited hyperdense material is seen in mid appendix. PERITONEUM: Unremarkable. No free fluid. No free air. LYMPH NODES: Unremarkable. No enlarged lymph nodes. BLADDER: Unremarkable. REPRODUCTIVE: Prior hysterectomy apparent 4.1 x 3.7 cm left adnexal cysts identified with an adjacent cyst extending medially, measuring 3.1 x 2.2 cm. Consider follow-up elective pelvic ultrasonography. BONES: No acute fracture. OTHER FINDINGS: None. IMPRESSION: No radiodense urolithiasis, obstructive uropathy or perinephric reaction bilaterally. Urinary bladder is largely decompressed. Prior cholecystectomy and hysterectomy again evident. Interval left adnexal cysts are identified as described above. Elective ultrasonography recommended for follow-up. Scribe Attestation: Documented by Ben Dan, acting as a scribe for Dr. Kellen Castellano MD. Provider Scribe Attestation: All medical record entries made by the Scribe were at my direction and personally dictated by me. I have reviewed the chart and agree that the record accurately reflects my personal performance of the history, physical exam, medical decision making, and the department course for this patient. I have also personally directed, reviewed, and agree with the discharge instructions and disposition. 1.30p patient is feeling better with NSAIDs. CT is negative of acute pathology. labs are normal. Advised outpatient followup for further evaluation and treatment if pain continues. Disposition - Clinical Impression Clinical Impression: Acute back pain - Patient ED Disposition Is Patient to be Admitted: No Doctor Will See Patient In The: Office Counseled Patient/Family Regarding: Diagnosis, Need For Followup, Rx Given - Disposition Referrals: [facility] [Outside] Disposition: Routine/Home Disposition Time: 13:46 Condition: IMPROVED Prescriptions: Ketorolac Tromethamine [Toradol] 10 mg PO Q6H PRN #19 tab PRN Reason: Pain, Moderate (4-7) Instructions: Flank Pain Forms: [facility] (Tajik), [facility] ED School/Work Excuse - POA Present On Arrival: None
--- NOTE | 2017-10-03 13:19 | CT ---
PROCEDURE: CT Abdomen and Pelvis without intravenous contrast HISTORY: right flank pain for 3 weeks COMPARISON: Unenhanced abdomen pelvis CT 10/06/2008. TECHNIQUE: Helical CT of the abdomen and pelvis was performed without oral or intravenous contrast as per referring physician request.. Contrast Dose: None Radiation dose: Total exam DLP = 1003.01 mGy-cm. This CT exam was performed using one or more of the following dose reduction techniques: Automated exposure control, adjustment of the mA and/or kV according to patient size, and/or use of iterative reconstruction technique. FINDINGS: LOWER THORAX: Unremarkable. LIVER: Unremarkable. No gross lesion or ductal dilatation. GALLBLADDER AND BILE DUCTS: Prior cholecystectomy again evident. PANCREAS: Unremarkable. No gross lesion or ductal dilatation. SPLEEN: Unremarkable. ADRENALS: Unremarkable. No mass. KIDNEYS AND URETERS: Unremarkable. No hydronephrosis. No solid mass. VASCULATURE: Unremarkable. No aortic aneurysm. BOWEL: The stomach is mildly distended with retained food and fluid. There is no bowel obstruction a. Appreciated. Majority of small bowel is decompressed as well as much of the large bowel. Moderate fecal loading is seen at the mid large-bowel. APPENDIX: No CT evidence of appendicitis. Limited hyperdense material is seen in mid appendix. PERITONEUM: Unremarkable. No free fluid. No free air. LYMPH NODES: Unremarkable. No enlarged lymph nodes. BLADDER: Unremarkable. REPRODUCTIVE: Prior hysterectomy apparent 4.1 x 3.7 cm left adnexal cysts identified with an adjacent cyst extending medially, measuring 3.1 x 2.2 cm. Consider follow-up elective pelvic ultrasonography. BONES: No acute fracture. OTHER FINDINGS: None. IMPRESSION: No radiodense urolithiasis, obstructive uropathy or perinephric reaction bilaterally. Urinary bladder is largely decompressed. Prior cholecystectomy and hysterectomy again evident. Interval left adnexal cysts are identified as described above. Elective ultrasonography recommended for follow-up.
== END 2017-10-03 14:06 | disposition home or self-care (01) ==
LOC: H.ER 11:06
DX: M54.9 Dorsalgia, unspecified (principal); I10 Essential (primary) hypertension; F17.210 Nicotine dependence, cigarettes, uncomplicated
CPT/HCPCS: 74176; 80053; 81025; 85025; 96374; 99284; J1885

== ENCOUNTER 2017-12-17 19:18 | Emergency (ER) | payer MEDICAID ==
[2017-12-17 19:19] VITALS: BMI 46.8
[2017-12-17 19:41] VITALS: PULSE 73; RESP 18; TEMP 98; O2SAT 97
[2017-12-17] MEDS ORDERED: Albuterol-Ipratrop 3 mg / 0.5 (3 ml) UD INH STA ×3 (20:22→20:23)
--- NOTE | 2017-12-17 20:37 | ED PDOC ---
HPI: SOB/CHF/COPD Time Seen by Provider: 12/17/17 19:43 Chief Complaint (Nursing): Shortness Of Breath Chief Complaint (Provider): Shortness of breath History Per: Patient History/Exam Limitations: no limitations Onset/Duration Of Symptoms: Days (2) Current Symptoms Are (Timing): Still Present Associated Symptoms: denies: Fever, Chills Additional History Per: Patient Additional Complaint(s): 47yo female with history of hypertension, asthma, presents to ED with complaints of shortness of breath for the past 2 days with associated chest tightness. She has been using her home nebulizer and albuterol treatment with no relief. She denies any chest pain, weakness, fever or chills. No other complaints. PMD: Dr. Rodriguez Past Medical History Reviewed: Historical Data, Nursing Documentation, Vital Signs Vital Signs: Last Vital Signs Temp 98.0 F 12/17/17 19:40 Pulse 73 12/17/17 19:40 Resp 18 12/17/17 19:40 BP 135/69 12/17/17 21:31 Pulse Ox 97 12/17/17 20:47 - Medical History PMH: Arthritis (right Knee), Asthma, HTN Denies: HIV, Chronic Kidney Disease - Surgical History Surgical History: Appendectomy, Cholecystectomy, Other surgeries: partial hysterectomy - Family History Family History: States: No Known Family Hx, Unknown Family Hx - Living Arrangements Living Arrangements: With Family - Home Medications Home Medications: Ambulatory Orders Medication Instructions Recorded Losartan/Hydrochlorothiazide 1 tab PO DAILY 12/31/16 [Losartan-Hctz 100-25 mg Tab] Cyclobenzaprine [Cyclobenzaprine 10 mg PO TID PRN #12 tab 09/24/17 HCl] Ibuprofen [Motrin Tab] 600 mg PO Q6 PRN #20 tab 09/24/17 Ketorolac Tromethamine [Toradol] 10 mg PO Q6H PRN #19 tab 10/03/17 Methylprednisolone [Medrol Dosepak] 4 mg PO ASDIR #1 pkg 12/17/17 - Allergies Allergies/Adverse Reactions: Allergies Allergy/AdvReac Type Severity Reaction Status Date / Time nut - unspecified Allergy ANAPHYLAXIS Verified 12/17/17 19:38 onion Allergy ANAPHYLAXIS Verified 12/17/17 19:38 Review of Systems ROS Statement: Except As Marked, All Systems Reviewed And Found Negative Constitutional: Negative for: Fever, Chills Cardiovascular: Negative for: Light Headedness Respiratory: Positive for: Shortness of Breath, Wheezing Physical Exam - Reviewed Nursing Documentation Reviewed: Yes Vital Signs Reviewed: Yes - Physical Exam Appears: Positive for: Non-toxic, No Acute Distress, Uncomfortable Head Exam: Positive for: ATRAUMATIC, NORMAL INSPECTION, NORMOCEPHALIC Skin: Positive for: Normal Color Eye Exam: Positive for: Normal appearance Neck: Positive for: Supple Cardiovascular/Chest: Positive for: Regular Rate, Rhythm Respiratory: Positive for: Decreased Breath Sounds (decreased air entry bilaterally). Negative for: Wheezing Gastrointestinal/Abdominal: Positive for: Soft. Negative for: Tenderness Back: Positive for: Normal Inspection Extremity: Positive for: Normal ROM. Negative for: Pedal Edema Neurologic/Psych: Positive for: Alert, Oriented. Negative for: Motor/Sensory Deficits - Laboratory Results Result Diagrams: 12/17/17 21:03 12/17/17 21:03 - ECG O2 Sat by Pulse Oximetry: 97 (RA) Pulse Ox Interpretation: Normal Medical Decision Making Medical Decision Making: Impression: Asthma exacerbation Plan: -- Labs -- Duoneb 3ml INH x 3 -- Magnesium 2gm IV -- Solumedrol 125mg IVP Time: 2259 Labs reviewed and shows no clinically significant abnormalities. Patient reports marked improvement in symptoms and is stable for discharge home. Instructed to follow up with PMD in 2-3 days without fail. Scribe Attestation: Documented by Kady Winkler, acting as a scribe for Mekhi Flores MD Provider Attestation: All medical record entries made by the Scribe were at my direction and personally dictated by me. I have reviewed the chart and agree that the record accurately reflects my personal performance of the history, physical exam, medical decision making, and the department course for this patient. I have also personally directed, reviewed, and agree with the discharge instructions and disposition. Disposition - Clinical Impression Clinical Impression: Asthma exacerbation - Disposition Disposition: Routine/Home Disposition Time: 23:00 Condition: STABLE Prescriptions: Methylprednisolone [Medrol Dosepak] 4 mg PO ASDIR #1 pkg Instructions: Asthma in Adults Forms: [employer] (Malay)
[2017-12-17] MEDS ORDERED: Magnesium Sulfate 2 gm/50 ml 2 GM/50 ML BAG ONE (20:42)
[2017-12-17] MEDS: Magnesium Sulfate 2 GM in Sodium Chloride 0.9% 100 ML IV STA ×2 (21:00→21:44)
[2017-12-17 21:07] LABS: BASO # 0.1 K/uL (0.0-0.2); BASO % 0.8 % (0.0-2.0); EOS # 0.3 K/uL (0.0-0.7); EOS % 3.5 % (0.0-4.0); HEMOGLOBIN 13.3 g/dL (12.0-16.0); LYMPH # 2.3 K/uL (1.0-4.3); LYMPH % 28.1 % (20.0-40.0); MEAN CELL VOLUME 90.7 fl (81.0-99.0); MEAN CORPUSCULAR HEMOGLOBIN 30.8 pg (27.0-31.0); MONO # 0.6 K/uL (0.0-0.8); MONO % 7.7 % (0.0-10.0); NEUT % 59.9 % (50.0-75.0); RBC 4.32 Mil/uL (3.80-5.20); RED CELL DISTRIBUTION WIDTH 13.5 % (11.5-14.5); WHITE BLOOD COUNT 8.3 K/uL (4.8-10.8)
[2017-12-17] MEDS ORDERED: Magnesium Sulfate 2 gm/50 ml 2 GM/50 ML BAG IV STA (21:17)
[2017-12-17 21:26] LABS: ALB/GLOB RATIO 1.2 (1.0-2.1); ALBUMIN 3.9 g/dL (3.5-5.0); ALT/SGPT 36 U/L (9-52); AST/SGOT 26 U/L (14-36); BLOOD UREA NITROGEN 16 mg/dl (7-17); CALCIUM 9.4 mg/dL (8.4-10.2); GFR AFRICAN-AMERICAN > 60; GFR NON-AFRICAN AMERICAN > 60
[2017-12-17 21:31] VITALS: BP 135/69
--- NOTE | 2017-12-18 10:28 | CARD ---
APPROVED REPORT EKG Measurement Heart [id number] <Conclusion> Normal sinus rhythm Normal ECG
== END 2017-12-17 23:05 | disposition home or self-care (01) ==
LOC: H.ER 19:18
DX: J45.901 Unspecified asthma with (acute) exacerbation (principal); J44.9 Chronic obstructive pulmonary disease, unspecified; I10 Essential (primary) hypertension
CPT/HCPCS: 80053; 81025; 85025; 93005; 96365; 96375; 99284; J2930

== ENCOUNTER 2017-12-28 16:42 | Emergency (ER) | payer MEDICAID ==
[2017-12-28 16:43] VITALS: BMI 46.8
[2017-12-28 16:52] VITALS: RESP 18; TEMP 98.4; O2SAT 97
--- NOTE | 2017-12-28 17:50 | ED PDOC ---
HPI: Back Time Seen by Provider: 12/28/17 17:13 Chief Complaint (Nursing): Back Pain History Per: Patient History/Exam Limitations: no limitations Onset/Duration Of Symptoms: Days (x since Sunday) Current Symptoms Are (Timing): Still Present Additional Complaint(s): 47-year-old female presents to ED complaining of pain. Pt reports moving mattress on Sunday and noticed pain day after. States she spoke with a friend who works in a pharmacy store and was advised to take Motrin or Naproxen. Reports improvements with medications. Pt notes pain is increasely worse and now involving right side of back. Denies hx of back injury, urinary and bowel incontinence, leg pain or leg numbness. PMD: Breana Gomes Past Medical History Reviewed: Historical Data, Nursing Documentation, Vital Signs Vital Signs: Last Vital Signs Temp 98.4 F 12/28/17 16:51 Pulse 81 12/28/17 16:51 Resp 18 12/28/17 16:51 BP 189/94 H 12/28/17 16:51 Pulse Ox 97 12/28/17 16:51 - Medical History PMH: Arthritis (right Knee), Asthma, HTN Denies: HIV, Chronic Kidney Disease - Surgical History Surgical History: Appendectomy, Cholecystectomy, - Family History Family History: States: Unknown Family Hx - Social History Current smoker - smoking cessation education provided: Yes Alcohol: None Drugs: Denies - Home Medications Home Medications: Ambulatory Orders Medication Instructions Recorded Losartan/Hydrochlorothiazide 1 tab PO DAILY 12/31/16 [Losartan-Hctz 100-25 mg Tab] Cyclobenzaprine [Cyclobenzaprine 10 mg PO TID PRN #12 tab 09/24/17 HCl] Ibuprofen [Motrin Tab] 600 mg PO Q6 PRN #20 tab 09/24/17 Ketorolac Tromethamine [Toradol] 10 mg PO Q6H PRN #19 tab 10/03/17 Methylprednisolone [Medrol Dosepak] 4 mg PO ASDIR #1 pkg 12/17/17 Naproxen 375 mg PO Q8 PRN #21 tablet 12/28/17 diaZEpam [Valium] 5 mg PO Q8 PRN #4 tab 12/28/17 - Allergies Allergies/Adverse Reactions: Allergies Allergy/AdvReac Type Severity Reaction Status Date / Time nut - unspecified Allergy ANAPHYLAXIS Verified 12/17/17 19:38 onion Allergy ANAPHYLAXIS Verified 12/17/17 19:38 Review of Systems ROS Statement: Except As Marked, All Systems Reviewed And Found Negative Musculoskeletal: Positive for: Back Pain Physical Exam - Reviewed Nursing Documentation Reviewed: Yes Vital Signs Reviewed: Yes - Physical Exam Back: Positive for: Other ((+) Paralumbar tenderness b/l, (-) focal spinal tenderness ) - Laboratory Results Urine POC: Negative - ECG O2 Sat by Pulse Oximetry: 97 (RA) Pulse Ox Interpretation: Normal Medical Decision Making Medical Decision Making: Time: 17:14 Plan: - Toradol 30 mg IM STAT - Valium 5 mg PO (-) POC Urine Test Upon provider evaluation patient is medically stable, and requires no further treatment in the ED at this time. Patient will be discharged with Rx for Valium and Naproxen. Counseling was provided and all questions were answered regarding diagnosis. There is agreement to discharge plan. Return if symptoms persist or worsen. Scribe Attestation: Documented by Roger Villarreal, acting as a scribe for Tru Cheatham PA-C. Provider Scribe Attestation: All medical record entries made by the Scribe were at my direction and personally dictated by me. I have reviewed the chart and agree that the record accurately reflects my personal performance of the history, physical exam, medical decision making, and the department course for this patient. I have also personally directed, reviewed, and agree with the discharge instructions and disposition. Disposition - Clinical Impression Clinical Impression: Low back pain - Patient ED Disposition Is Patient to be Admitted: No - Disposition Disposition: Routine/Home Disposition Time: 18:02 Condition: FAIR Prescriptions: diaZEpam [Valium] 5 mg PO Q8 PRN #4 tab PRN Reason: Muscle Spasm Naproxen 375 mg PO Q8 PRN #21 tablet PRN Reason: Pain, Moderate (4-7) Instructions: Low Back Pain in Adults Forms: [facility] ([place]), [facility] ED School/Work Excuse
[2017-12-28 17:57] VITALS: BP 153/86; PULSE 71
== END 2017-12-28 18:02 | disposition home or self-care (01) ==
LOC: H.ER 16:42
DX: M54.5 Low back pain (principal); F17.200 Nicotine dependence, unspecified, uncomplicated; I10 Essential (primary) hypertension; J45.909 Unspecified asthma, uncomplicated; X50.0XXA Overexertion from strenuous movement or load, initial encounter
CPT/HCPCS: 81025; 96372; 99283; J1885